=== PATIENT | male | born 1975 | race Hispanic/Latino ===

== ENCOUNTER 2025-10-17 08:23 | Day surgery (SDC) | payer BC ==
[2025-10-17] VITALS (10 sets, daily range): BP systolic 99–127; BP diastolic 45–75; PULSE 63–89; RESP 14–18; TEMP 97.1–97.9
[~2025-10-17] VITALS: Ht 170.2 cm; Wt 114.8 kg
[2025-10-17] MEDS: 0.9%NACL 1000ML 1,000 ML IV ONE (12:50)
[2025-10-17] MEDS ORDERED: LEVO25CA5 PO (12:54)
[2025-10-17] MEDS ORDERED: FURO20TA4 PO (12:54)
[2025-10-17] MEDS ORDERED: SPIR50TA5 PO (12:54)
[2025-10-17] MEDS ORDERED: OMEP40CA21 PO (12:54)
[2025-10-17] MEDS ORDERED: LACT-441 PO (12:54)
[2025-10-17] MEDS ORDERED: RIFA550T PO (12:54)
== END 2025-10-17 14:51 | disposition home or self-care (01) ==
LOC: ENDO 08:23 → DAH 08:23 → ENDO 14:51
PROVIDERS: ATTEND Internal Medicine Gastroenterology
DX: K74.60 Unspecified cirrhosis of liver (principal); K29.50 Unspecified chronic gastritis without bleeding; I85.10 Secondary esophageal varices without bleeding; I10 Essential (primary) hypertension; K76.82 Hepatic encephalopathy; E03.9 Hypothyroidism, unspecified; F41.8 Other specified anxiety disorders; R60.9 Edema, unspecified; Z68.33 Body mass index [BMI] 33.0-33.9, adult; Z79.899 Other long term (current) drug therapy
CPT/HCPCS: 43239; J7030; J2704; A4620; A4215; J3490